=== PATIENT | male | born 1980 | race Caucasian/White ===

== ENCOUNTER 2018-12-13 05:04 | Emergency (ER) | payer OTHER ==
[2018-12-13] MEDS ORDERED: Sodium Chloride 0.9% 1,000 ML IV STA (05:34)
[2018-12-13 05:51] LABS: BASO % 0.3 % (0.0-2.0); EOS % 0.6 % (0.0-4.0); HEMOGLOBIN 14.3 g/dL (12.0-18.0); LYMPH # 1.3 K/uL (1.0-4.3); LYMPH % 15.6 % (20.0-40.0); MEAN CELL VOLUME 90.1 fl (80.0-94.0); MEAN CORPUSCULAR HGB CONC 34.4 g/dL (33.0-37.0); MEAN PLATELET VOLUME 7.6 fl (7.2-11.7); MONO # 0.4 K/uL (0.0-0.8); NEUT # 6.4 K/uL (1.8-7.0); NEUT % 78.5 % (50.0-75.0); NRBC % 0.1 % (0.0-0.0); RBC 4.61 Mil/uL (4.40-5.90); RED CELL DISTRIBUTION WIDTH 13.6 % (11.5-14.5); WHITE BLOOD COUNT 8.2 K/uL (4.8-10.8)
--- NOTE | 2018-12-13 05:51 | ED PDOC ---
HPI: Abdomen Time Seen by Provider: 12/13/18 05:13 Chief Complaint (Nursing): Abdominal Pain Chief Complaint (Provider): Abdominal Pain History Per: Patient History/Exam Limitations: no limitations Onset/Duration Of Symptoms: Days (x1) Additional Complaint(s): 38 y/o male with no PMHx presents to the ED complaining of sudden onset left sided abdominal pain associated with nausea. Patient reports that he developed diarrhea x2 days ago on Tuesday. Today he suddenly started feeling pain and dev eloped nausea. Patient also reports that he felt like he needed to urinate but he couldn't. Patient had a normal bowel movement. Denies chest pain, fever, or shortness of breath. Patient also denies any previous history of stones. Past Medical History Reviewed: Historical Data, Nursing Documentation, Vital Signs Vital Signs: Last Vital Signs Temp 98.0 F 12/13/18 05:10 Pulse 73 12/13/18 05:10 Resp 16 12/13/18 05:10 BP 136/88 12/13/18 05:10 Pulse Ox 100 12/13/18 05:10 - Medical History PMH: No Chronic Diseases - Surgical History Surgical History: Appendectomy, Tonsillectomy - Family History Family History: States: Unknown Family Hx - Home Medications Home Medications: Ambulatory Orders Medication Instructions Recorded Ciprofloxacin HCl [Cipro] 500 mg PO BID #14 tablet 12/13/18 Ibuprofen [Motrin Tab] 800 mg PO Q6 #28 tab 12/13/18 Tamsulosin [Flomax] 0.4 mg PO BID #14 cap 12/13/18 oxyCODONE/Acetaminophen [Percocet 1 ea PO Q4 #18 tab 12/13/18 5/325 mg Tab] - Allergies Allergies/Adverse Reactions: Allergies Allergy/AdvReac Type Severity Reaction Status Date / Time No Known Allergies Allergy Verified 12/13/18 05:34 Review of Systems ROS Statement: Except As Marked, All Systems Reviewed And Found Negative Constitutional: Positive for: Chills, Sweats. Negative for: Fever Cardiovascular: Negative for: Chest Pain Respiratory: Negative for: Shortness of Breath Gastrointestinal: Positive for: Nausea, Abdominal Pain, Diarrhea Physical Exam - Reviewed Nursing Documentation Reviewed: Yes Vital Signs Reviewed: Yes - Physical Exam Appears: Positive for: No Acute Distress (diaphoretic and in pain ) Head Exam: Positive for: ATRAUMATIC, NORMAL INSPECTION, NORMOCEPHALIC Skin: Positive for: Normal Color, Warm, DRY Eye Exam: Positive for: EOMI, Normal appearance, PERRL ENT: Positive for: Normal ENT Inspection Neck: Positive for: Normal, Painless ROM Cardiovascular/Chest: Positive for: Regular Rate, Rhythm. Negative for: Murmur Respiratory: Positive for: Normal Breath Sounds. Negative for: Respiratory Distress Gastrointestinal/Abdominal: Positive for: Normal Exam, Soft. Negative for: Tenderness Back: Positive for: L CVA Tenderness. Negative for: R CVA Tenderness Extremity: Positive for: Normal ROM. Negative for: Pedal Edema, Deformity Neurologic/Psych: Positive for: Alert, Oriented. Negative for: Motor/Sensory Deficits - Laboratory Results Result Diagrams: 12/13/18 05:48 12/13/18 05:48 - ECG O2 Sat by Pulse Oximetry: 100 (RA) Pulse Ox Interpretation: Normal Medical Decision Making Medical Decision Making: Time: 05:35 MDM: Renal stone vs other abdominal pathology Plan: * Labs * IV Fluids * Toradol * Zofran * CT Abdomen Pelvis * Reassess 06:09 CT Abd Pelvis FINDINGS: The visualized lung bases are unremarkable. Normal unenhanced liver. Normal gallbladder and extrahepatic biliary system. Normal unenhanced spleen. Normal pancreas. Normal bilateral adrenal glands. Normal size of the right kidney. There is no right renal mass. There are no right renal calculi. There is no right hydronephrosis. Normal visualized right ureter. Normal size of the left kidney. There is no left renal mass. There are no left renal calculi. 3 mm obstructing stone in the left ureterovesical junction. Mild left hydroureteronephrosis. Fluid-filled stomach. Normal small intestine. Uncomplicated diverticulosis of the colon. The appendix is visualized and appears normal. There is no demonstrated peritoneal fluid. Normal abdominal aorta. Normal inferior vena cava. Normal retroperitoneum. Normal urinary bladder. There is no pelvic mass lesion or lymphadenopathy. There is no pelvic fluid. Normal abdominal wall. Shortening and chronic deformities of the femoral necks. Moderate bilateral chronic changes of sacroiliitis. IMPRESSION: Obstructing stone of the left ureterovesical junction. Reactive gastroparesis. 06:[address] indicates left obstructing stone with mild hydro. Will consult with Dr. Mulligan. Patient's pain improved with Toradol. 07:[address] Moreno. Patient is comfortable at this point. Dr. Moreno recommends PO Cipro, Flomax, and hydration and patient will follow up with Dr. Moreno outpatient. Discussed treatment plan with patient who is comfortable to go home. He will be given 2 days work note and return parameters discussed. ------ Scribe Attestation: Documented by Alejandro Stahl acting as a scribe for Darcie Nava MD. Provider Scribe Attestation: All medical record entries made by the Scribe were at my direction and personally dictated by me. I have reviewed the chart and agree that the record accurately reflects my personal performance of the history, physical exam, medical decision making, and the department course for this patient. I have also personally directed, reviewed, and agree with the discharge instructions and disposition. Disposition - Clinical Impression Clinical Impression: Renal stone - Disposition Referrals: Tavares Moreno MD [Medical Doctor] - Disposition: Routine/Home Disposition Time: 07:00 Condition: IMPROVED Additional Instructions: Take all medications as prescribed. Follow up with Dr. Moreno within 24 to 48 hours. Take Motrin for pain and only take Percocet for severe pain that is not improved with Motrin. Return to the emergency department if you develop fever, vomiting, inability or urinate, or other new symptoms. Prescriptions: Ciprofloxacin HCl [Cipro] 500 mg PO BID #14 tablet Ibuprofen [Motrin Tab] 800 mg PO Q6 #28 tab oxyCODONE/Acetaminophen [Percocet 5/325 mg Tab] 1 ea PO Q4 #18 tab Tamsulosin [Flomax] 0.4 mg PO BID #14 cap Instructions: Kidney Stones (DC), Flank Pain (DC), Urinary Obstruction (DC) Forms: [employer] (Turkmen), [facility] ED School/Work Excuse Print Language: SWEDISH
[2018-12-13 05:57] LABS: URINE BACTERIA RARE (<OCC); URINE BILIRUBIN NEGATIVE (NEGATIVE); URINE BLOOD LARGE (NEGATIVE); URINE CLARITY CLOUDY (Clear); URINE COLOR YELLOW (YELLOW); URINE GLUCOSE (UA) NEG (NEGATIVE); URINE LEUKOCYTE ESTERASE NEG Leu/uL (Negative); URINE PROTEIN 30 mg/dL (NEGATIVE)
[2018-12-13 06:00] LABS: ALB/GLOB RATIO 1.6 (1.0-2.1); ALBUMIN 4.4 g/dL (3.5-5.0); ALT/SGPT 54 U/L (21-72); AST/SGOT 28 U/L (17-59); BLOOD UREA NITROGEN 19 mg/dl (9-20); CALCIUM 9.2 mg/dL (8.4-10.2); GFR NON-AFRICAN AMERICAN > 60
[2018-12-13 07:27] VITALS: BP 115/57; PULSE 77; RESP 18; TEMP 98.1
--- NOTE | 2018-12-13 10:45 | CT ---
Date of service: 12/13/2018 PROCEDURE: CT Abdomen and Pelvis without intravenous contrast HISTORY: left abd pain, work up for stone COMPARISON: None. TECHNIQUE: Without contrast.. Contrast dose: 0 Radiation dose: Total exam DLP = 488.8 mGy-cm. This CT exam was performed using one or more of the following dose reduction techniques: Automated exposure control, adjustment of the mA and/or kV according to patient size, and/or use of iterative reconstruction technique. FINDINGS: LOWER THORAX: Unremarkable. LIVER: Unremarkable. No gross lesion or ductal dilatation. GALLBLADDER AND BILE DUCTS: Unremarkable. PANCREAS: Unremarkable. No gross lesion or ductal dilatation. SPLEEN: Unremarkable. ADRENALS: Unremarkable. No mass. KIDNEYS AND URETERS: Mild left hydronephrosis and hydroureter. Obstructing 3 mm calculus at the left ureterovesical junction. No renal calculus. No right hydronephrosis. No renal mass. VASCULATURE: Unremarkable. No aortic aneurysm. There is minimal atherosclerotic calcification of the iliac vessels but not of the abdominal aorta BOWEL: Unremarkable. No obstruction. No gross mural thickening. APPENDIX: Not identified. No secondary findings to suggest acute appendicitis. PERITONEUM: Unremarkable. No free fluid. No free air. LYMPH NODES: No retroperitoneal or pelvic lymphadenopathy. There are numerous subcentimeter lymph nodes seen within the small bowel mesentery, nonspecific. BLADDER: Decompressed REPRODUCTIVE: Normal prostate BONES: No acute fracture. OTHER FINDINGS: None. IMPRESSION: 3 mm obstructing calculus at left ureterovesical junction with mild left hydroureteronephrosis. Incidentally noted numerous subcentimeter small bowel mesenteric lymph nodes. Nonspecific finding. No other significant abnormality. The preliminary findings for this examination were reported by [facility] at 6:09 a.m. on 12/13/2018. There is concurrence of this report with the preliminary findings.
[2018-12-18 12:05] VITALS: O2SAT 100
== END 2018-12-13 07:27 | disposition home or self-care (01) ==
LOC: H.ER 05:04
DX: N20.0 Calculus of kidney (principal)
CPT/HCPCS: 74176; 80053; 81003; 85025; 96361; 96374; 96375; 99284; J1885; J2405; J7030